=== PATIENT | male | born 1970 | race Caucasian/White ===

== ENCOUNTER 2017-10-01 07:57 | Emergency (ER) | payer BC ==
[2017-10-01 09:02] VITALS: BP 122/75
--- NOTE | 2017-10-01 09:08 | ED ---
GI/ HPI - HPI Summary HPI Summary: Patient is a 47-year-old male who presents emergency department for bright red rectal reading. Patient states is a history of hemorrhoids and uses a homeopathic cream intermittently. Patient states he had a painful bowel movement this morning and noticed bright red blood in the toilet. He states he got in the shower and bleeding persisted so he presented to the emergency department. States he felt a little lightheaded at the time but currently denies chest pain, shortness of breath, lightheadedness or dizziness. He is not anticoagulated. He has no past medical history. Has seen GI for hemorrhages the past. Is currently visiting the area on vacation. Symptoms are mild in severity. No current modifying factors. - History of Current Complaint Chief Complaint: EDBleedingDisorder Time Seen by Provider: 10/01/17 08:30 Stated Complaint: RECTAL BLEEDING Hx Obtained From: Patient Pain Intensity: 0 - Allergy/Home Medications Allergies/Adverse Reactions: Allergies Allergy/AdvReac Type Severity Reaction Status Date / Time No Known Allergies Allergy Verified 10/01/17 08:20 PMH/Surg Hx/FS Hx/Imm Hx Previously Healthy: Yes Infectious Disease History: No Infectious Disease History: Denies: Traveled Outside the [place] in Last 30 Days - Social History Occupation: Employed Full-time Lives: With Family Alcohol Use: Occasionally Substance Use Type: Reports: None Smoking Status (MU): Never Smoked Tobacco Review of Systems Cardiovascular: Negative Respiratory: Negative Positive: Other - Rectal bleeding All Other Systems Reviewed And Are Negative: Yes Physical Exam Triage Information Reviewed: Yes Vital Signs On Initial Exam: Initial Vitals Temp Pulse Resp BP Pulse Ox 97.2 F 74 16 120/83 95 10/01/17 08:01 10/01/17 08:01 10/01/17 08:01 10/01/17 08:01 10/01/17 08:01 Vital Signs Reviewed: Yes Appearance: Positive: Well-Appearing - Pt. lying in bed in NAD. Skin: Positive: Warm, Dry Head/Face: Positive: Normal Head/Face Inspection Eyes: Positive: Normal Neck: Positive: Supple Abdomen Description: Positive: Other: - Small amount of blood noted on paper towel in buttocks. No active bleeding. No thrombosed hemorrhoid. No anal fissure. Neurological: Positive: Normal, CN Intact II-III Psychiatric: Positive: Affect/Mood Appropriate Diagnostics - Vital Signs Vital Signs Temp Pulse Resp BP Pulse Ox 10/01/17 09:01 98.1 F 60 16 122/75 95 10/01/17 08:01 97.2 F 74 16 120/83 95 - Laboratory Lab Statement: Any lab studies that have been ordered have been reviewed, and results considered in the medical decision making process. GIGU Course/Dx - Course Course Of Treatment: Patient presenting for an episode of bright red bleeding per rectum after having a painful bowel movement. Vital signs are stable. He is asymptomatic. In the ER he currently has no active bleeding. Patient is comfortable with no blood work and DC home. Anusol suppositories prescribed. Advised patient to continue increase fluids and fiber in diet. To follow-up with family doctor GI if needed. To return to the ER if bleeding returns or if concerned. - Diagnoses Differential Diagnoses - Male: Constipation, Hemorrhoids, Rectal Fissure Provider Diagnoses: Hemorrhoids Discharge - Sign-Out/Discharge Documenting (check all that apply): Patient Departure - Discharge Plan Condition: Good Disposition: HOME Prescriptions: Hydrocortisone SUPP* [Anusol HC Supp*] 25 mg SD BID #14 supp Patient Education Materials: Hemorrhoids (ED), Rectal Bleeding (ED) Referrals: No Primary Care Phys,NOPCP [Primary Care Provider] - Additional Instructions: Schedule a follow up appointment with your GI doctor Use suppository as directed Return to ER for return worsening bleeding or if concerned - Billing Disposition and Condition Condition: GOOD Disposition: Home
== END 2017-10-01 09:01 | disposition home or self-care (01) ==
LOC: ED 07:57
DX: K64.9 Unspecified hemorrhoids (principal)
CPT/HCPCS: 99282